=== PATIENT | female | born 1990 ===

== ENCOUNTER → 2017-08-09 | Outpatient (CLI) | payer OTHER ==
[~2017-08-09] MED LIST: IOPAMIDOL (ISOVUE-300) 100 ML BTL ONE
== END ==
LOC: CIMAGING 11:25
PROVIDERS: ATTEND Surgery
DX: N83.202 Unspecified ovarian cyst, left side (principal)
CPT/HCPCS: 72193-PO; Q9967

== ENCOUNTER → 2018-03-29 | Outpatient (CLI) | payer OTHER | LOC: FIMAGING 10:13 | DX: R92.8 Other abnormal and inconclusive findings on diagnostic imaging of breast (principal) ==